=== PATIENT | male | born 1990 | race Caucasian/White ===

== ENCOUNTER 2024-05-20 20:17 | Emergency (ER) | payer OTHER, SELFPAY ==
[2024-05-20 20:30] VITALS: BP 140/89
[2024-05-20 20:54] LABS: % Eosinophils 9.4 % (0-6); % Immature Granulocytes 0.5 % (0-0.5); % Lymphocytes 33.1 % (20.5-51.1); % Monocytes 8.6 % (1.7-9.3); % Neutrophils 47.4 % (42.2-75.2); Absolute Basophils 0.1 10^3/uL (0-0.2); Absolute Eosinophils 0.8 10^3/uL (0-0.7); Absolute Lymphocytes 2.8 10^3/uL (1.2-3.4); Absolute Monocytes 0.7 10^3/uL (0.1-0.6); Hematocrit 42.5 % (39.0-52.0); Hemoglobin 15.5 g/dL (13.0-18.0); Mean Corp Hgb Conc. 36.5 g/dL (33.0-37.0); Mean Corpuscular Hgb 31.9 pg (27.0-31.0); Mean Corpuscular Volume 87.4 fL (80.0-94.0); Mean Platelet Volume 9.1 fL (7.4-10.4); Nucleated Red Blood Cells % 0 % (-); Platelet Count 332 10^3/uL (130-400); Red Blood Cell Count 4.86 10^6/uL (4.70-6.10); Red Cell Dist. Width 12.2 % (11.5-14.5); White Blood Cell Count 8.4 10^3/uL (4.8-10.8)
[2024-05-20 21:18] LABS: Troponin I 0.025 ng/ml
[2024-05-20 21:28] LABS: ALT (SGPT) 64 U/L (0-50); AST (SGOT) 40 U/L (17-59); Albumin 4.8 g/dl (3.5-5.0); Alkaline Phosphatase 64 U/L (38-126); Blood Urea Nitrogen 9 mg/dl (9-20); Calcium 9.7 mg/dl (8.4-10.2); Carbon Dioxide 27 mmol/L (22-30); Chloride 103 mmol/L (98-107); Glucose 113 mg/dl (70-99); Potassium 4.3 mmol/L (3.5-5.1); Sodium 142 mmol/L (135-145); Total Bilirubin 0.7 mg/dl (0.2-1.3); Total Protein 7.3 g/dl (6.3-8.2); eGFR > 60.00
[2024-05-20 21:29] LABS: Lipase 51 U/L (23-300)
[2024-05-20 22:32] VITALS: BMI 29.0
--- NOTE | 2024-05-20 22:43 | ED.GENMED ---
History of Present Illness
General
Chief Complaint: Vomiting Blood
Source: patient
Exam Limitations: none
Time Seen by Provider: 05/20/24 22:27
History of Present Illness
History of Present Illness:
This is a 34 year old male that comes in with c/o vomiting blood. States that he eat dinner and after dinner he felt full. States that he started with nausea and then vomiting and there was blood. States that he vomited again and there was blood.
States that he couldn't believe this so he made himself vomit again and there was blood. States that he feels that there is a little pressure in the chest and that he felt SOB. States that he has a slight headache. Denies any an fever, chills, abd
pain, diarrhea, dizziness, urinary burning.
Past History
Past History
ED Past Medical History: Seizures and Other (Positive MARY, Lupus)
ED Past Surgical History: Tonsilectomy (and adenoids)
Social History
Tobacco: Former smoker
Alcohol: Occasional
Drug: None
Personal:
Living: with family
Review of Systems
Review of Systems
All Other Systems: ROS reviewed and negative except as documented in HPI and ROS
Constitutional: Reports no symptoms; Denies fever or chills
EENT: Reports no symptoms
Respiratory: Reports trouble breathing; Denies cough
Cardiac: Reports chest pain (Pressure)
ABD/GI: Reports nausea and vomiting (Blood in vomit); Denies abdominal pain or diarrhea
: Reports no symptoms; Denies dysuria, frequency or urgency
Musculoskeletal: Reports no symptoms
Skin: Reports no symptoms
Neurological: Reports headache (Slight); Denies dizzy
Psychiatric: Reports no symptoms
Phy Exam
General Physical Exam
General Presentation: well appearing and no apparent distress
General age: appears stated age
General Skin: warm and dry
General Habitus: normal
General Mental: alert
General Hydration: appears well hydrated
ENT Exam
ENT Exam: TM's normal, pharynx normal and neck supple
Eye Exam
Eye Exam: EOMI
Cardiovascular Exam
Cardiovascular Exam: regular rate/rhythm, no edema, no murmur and normal peripheral pulses
Pulmonary Exam
Pulmonary Exam: lungs clear, no respiratory distress, no rales, chest non tender, no crackles, no rhonchi, no wheezing and no cough
Gastrointestinal Exam
Gastrointestinal Exam: normal bowel sounds, non tender, soft, no organomegaly, no pulsatile mass and non distended
Musculoskeletal Exam
Musculoskeletal Exam: no edema
Skin Exam
Skin Exam: normal color, warm/dry, no rash and no petechia
Psychiatric Exam
Psychiatric Exam: normal mood/affect
Course
Orders/Labs/Results
Orders:
Orders
05/20/24 20:33
Electrocardiogram (*1) Urgent
Reason for Study: Abdominal Pain
EKG- Treatment ONCE
IV Insert/Care/Rem.- Treatment PRN
05/20/24 20:46
Type+Screen Urgent
Complete Blood Count/With Diff Urgent
Comprehensive Metabolic Panel Urgent
Lipase Urgent
Troponin I Urgent
05/20/24 22:41
Pantoprazole [Protonix IV] 40 mg IV NOW STA
Sucralfate Suspension [Carafate Suspension] 1 gm PO NOW STA
05/20/24 22:42
CR Chest - 2 Views Urgent
Comment:
Reason For Exam: SOB
05/20/24 23:47
ABO2 Urgent
BBK Wristband Number:
Associate notified that ABO2 has been ordered: [id number]
Date: 05/20/24
Time: 20:53
Drum Worker ID: [id number]
Troponin I Urgent
05/21/24 00:57
D-Dimer Urgent
Abnormal Lab Results
05/20/24
20:46
MCH 31.9 H pg
(27.0-31.0)
Absolute Monos (auto) 0.7 H 10^3/uL
(0.1-0.6)
Absolute Eos (auto) 0.8 H 10^3/uL
(0-0.7)
Eosinophils % 9.4 H %
(0-6)
Glucose 113 H mg/dl
(70-99)
ALT 64 H U/L
(0-50)
05/20/24 20:46
05/20/24 20:46
Hyperglycemia, ALT mildly elevated. Troponin 0.025, Lipase normal at 51, Troponin 0.025,
Second Troponin 0.023, D-dimer <0.27
Vital Signs
Initial and Last Documented VS:
Initial Vital Signs
Temp Pulse Resp BP Pulse Ox
98.6 F 78 19 140/89 98
05/20/24 20:30 05/20/24 20:30 05/20/24 20:30 05/20/24 20:30 05/20/24 20:30
Last Documented Vital Signs
Temp Pulse Resp BP Pulse Ox
98.6 F 65 18 118/68 98
05/20/24 20:30 05/21/24 00:15 05/21/24 00:15 05/21/24 00:00 05/21/24 00:45
MDM/Problems Addressed
Differential Diagnosis Includes:
Ulcer, esophageal varicies,
MDM/Problems Addressed:
This is a 34 year old male that comes in with c/o vomiting blood. States that this happened three times with the last being due to he caused himself to vomit.
Will check labs and medicate with Protonix and Carafate. will get Chest X-ray.
Back into see patient. Explained that his blood work is normal. This may be due to a small tear or a developing ulcer. Will place patient on Protonix and Carafate. Patient to follow up with the family doctor. Patient to try and stay away form
Caffeine and Alcohol. Return with any concerns.
Chronic conditions affecting care:
Lupus
Acute Exacerbation and/or Progression of Chronic Illness:
NA
*Radiology
Radiology exam reviewed: radiology read reviewed (Chest-Negative for active disease. )
*Pulse Oximetry
Patient hypoxic: no
*EKG
Interpreted by ED Provider?: Yes
Heart Rate: 71
Rate: normal
Rhythm: sinus
[place]: normal axis
Interval: normal interval
QRS Pattern: normal QRS
Ischemia: no ischemia
*Major General Interpretation
Rate: normal
Heart Rate: 74
*Critical Care Note
Total Time (30-74mins, 75-104mins- exclusive of procedures): Not Applicable
ED Attending Note
-
Portions of this chart may have been created with voice recognition software.� Occasional wrong word or��sound alike� substitutions may have occurred due to the inherent limitations of voice recognition software.
Discharge Plan
Departure
Patient Disposition: Home (Routine Discharge)
Date of Disposition: 05/21/24
Time of Disposition: 01:30
Patient with high blood pressure during this ER visit?: No
Condition: Good
Covid-19: Not Applicable
Discharge Problem:
Vomiting blood
Instructions: Gastrointestinal Bleeding (DC)
Prescriptions:
New
pantoprazole [Protonix] 40 mg tablet,delayed release (DR/EC)
40 mg PO DAILY Qty: 30 0RF
sucralfate [Carafate] 1 gram tablet
1 g PO ACHS Qty: 40 0RF
Rx Instructions:
30min-1hour before meals. Dissolve in 2 tsp of water and drink
No Action
Amoxicillin
500 mg QID
ibuprofen [Advil] 200 MG tablet
400 mg PO PRN (Reason: pain)
hydrocodone-acetaminophen 5 MG/500 MG tablet
1 tab PO Q4HPRN PRN (Reason: pain) Qty: 15 0RF
gentamicin 0.3 % drops
1 drp BOTH EYES Q4 Qty: 1 0RF
ondansetron 4 MG tablet,disintegrating
4 mg PO TIDPRN PRN (Reason: NAUSEA) Qty: 15 0RF
Referrals:
Wilner Fenton MD [Family Provider] - Follow up in 2-3 days
Activity Restrictions/Additional Instructions:
As discussed, your blood work shows that your ALT is slightly elevated. Otherwise your labs are normal. Your chest x-ray is normal. This may be due to a developing Ulcer or a small tear. PLEASE DO NOT FORCE YOURSELF TO VOMITED THIS CAN CAUSE ANY
TEAR TO WORSEN. You have had 2 prescriptions sent to your Pharmacy. Please take them as directed. Follow up with the family doctor for recheck. IF YOU HAVE INCREASED BLEEDING, ABDOMINAL PAIN OR YOU HAVE ANY OTHER CONCERNS PLEASE RETURN TO THE
EMERGENCY ROOM
Interventions
Interventions:
*Risk Screen - Suicide Last Done: 05/20/24 20:30
*General Assessment Last Done: 05/20/24 20:30
*Neglect/Abuse Screening Last Done: 05/20/24 20:30
ED- Fall Risk Assessment Last Done: 05/20/24 22:33
*ED COVID-19 Vaccine History Last Done: 05/20/24 20:30
TY-Fvknhg-Ufkaewkyxd Assessment Last Done: 05/20/24 22:33
ED- Cardiac Assessment Last Done: 05/20/24 22:33
ED- Pulmonary Assessment Last Done: 05/20/24 22:33
Discharge Date and Time
Print Language: [place]
[2024-05-20] MEDS: CARAFATE SUSPENSION 1 GM PO (22:58)
[2024-05-20] MEDS: PROTONIX IV 40 MG IV (22:58)
[2024-05-20 23:00] VITALS: BP 115/84
[2024-05-21] VITALS: BP 118/68
[2024-05-21 00:18] LABS: Troponin I 0.023 ng/ml
[2024-05-21 01:00] VITALS: BP 108/82
[2024-05-21 01:16] LABS: D-Dimer < 0.27 ug/mlFEU (0.00-0.50)
== END 2024-05-21 01:42 | disposition home or self-care (01) ==
LOC: EMR 20:17
PROVIDERS: Clinical Nurse Specialist Family Health; Emergency Medicine; EMERGENCY PHYSICIAN Student in an Organized Health Care Education/Training Program; FAMILY PHYSICIAN Family Medicine
DX: K92.0 Hematemesis (principal); M32.9 Systemic lupus erythematosus, unspecified; Z87.891 Personal history of nicotine dependence
CPT/HCPCS: 99283; 71046; 80053; 83690; 84484; 85025; 85379; 86850; 86900; 86901; 93005; 96374